=== PATIENT | female | born 1985 | race Caucasian/White ===

== ENCOUNTER → 2021-09-26 | Outpatient (CLI) | payer OTHER ==
[~2021-09-26] MED LIST: OMNICEF 300 MG300 MG PO; PREDNISONE50 MG PO; PRENATAL TABLE1 EAC2 PO; TESSALON PERLE100 MG PO; VENTOLIN HFA 66.7 GM INH; ZITHROMAX250 MG PO
== END ==
LOC: RAD 09:13
DX: K59.00 Constipation, unspecified (principal); R14.3 Flatulence
CPT/HCPCS: 74018